=== PATIENT | male | born 1955 | race Two or more races ===

== ENCOUNTER → 2021-02-21 | Outpatient (CLI) | payer MEDICAID ==
[~2021-02-21] MED LIST: METF500T17 PO
[2021-02-21 09:34] LABS: BASOPHILS % (AUTO) 1 % (0-1); EOSINOPHILS % (AUTO) 7 % (1-7); LYMPHOCYTES % (AUTO) 22 % (22-44); MEAN CORPUSCULAR HEMOGLOBIN 27.5 pg (27.5-34.5); MEAN CORPUSCULAR HGB CONC 32.9 g/dL (33.2-36.2); MEAN PLATELET VOLUME 7.1 fL (7.4-10.4); MONOCYTES % (AUTO) 9 % (2-9); NEUTROPHILS % (AUTO) 60 % (42-75); PLATELET COUNT 285 x10^3/uL (130-400); RED BLOOD COUNT 5.01 x10^6/uL (4.38-5.82); RED CELL DISTRIBUTION WIDTH 14.5 % (9.4-14.8)
[2021-02-21 09:35] LABS: MD NO
[2021-02-21 09:45] LABS: INTERNATIONAL NORMALIZED RATIO 1.03 (0.93-1.1)
[2021-02-21 09:46] LABS: ALANINE AMINOTRANSFERASE 53 U/L (12-78); ANION GAP 4 mmol/L (5-15); CALCIUM 9.4 mg/dL (8.5-10.1); CHLORIDE 105 mmol/L (98-107); CREATININE 0.82 mg/dL (0.7-1.3)
[2021-02-21 09:48] LABS: ALKALINE PHOSPHATASE 81 U/L (45-117); BILIRUBIN,TOTAL 0.5 mg/dL (0.2-1.0); TOTAL PROTEIN 8.3 g/dL (6.4-8.2)
== END | disposition home or self-care (01) ==
LOC: STAR 08:11
PROVIDERS: ATTEND Orthopaedic Surgery
DX: Z01.818 Encounter for other preprocedural examination (principal); Z20.822 Contact with and (suspected) exposure to COVID-19
CPT/HCPCS: 36415; 80053; 83036; 85025; 85610; 85730; 87081; 93005; U0003; U0005

== ENCOUNTER 2021-02-24 07:08 | Day surgery (SDC) | payer MEDICAID ==
[~2021-02-24] VITALS: Ht 175.3 cm; Wt 109.1 kg
[~2021-02-24 07:08] MED LIST changes: +ACETAMINOPHEN 650 MG/20.3 ML UDC PO PRN; +BISACODYL 10 MG SUPP PR PRN; +CEFAZOLIN PMX 2GM/50ML 50 ML IVPB SCH; +DIPHENHYDRAMINE 25 MG CAPSULE PO PRN; +EPINEPHRINE 1 MG/ML, 1ML ONE; +HYDROcodone/APAP 5/325 TABLET PO PRN; +KETOROLAC 60 MG/2 ML ONE; +MAGNESIUM HYDROXIDE 8%, 30ML UDC PO PRN; +NS + 20MEQ KCL 1,000 ML IV SCH; +ONDANSETRON 2MG/ML, 2ML IV PRN; +ONDANSETRON 4 MG TABLET PO PRN; +OXYcodone IR 5MG TABLET PO PRN; +ROPIvacaine/PF 0.5%, 20 ML ONE; +ROPIvacaine/PF 0.5%, 30 ML ONE; +SENNA/DOCUSATE TABLET PO PRN; +SODIUM CHLORIDE 0.9% 50 ML ONE; +TRANEXAMIC ACID 100 MG/ML, 10ML ONE; +VANCOMYCIN 1,000 MG ONE
[2021-02-24 07:40] VITALS: BP 122/77
[2021-02-24] MEDS ORDERED: MIDAZOLAM 1 MG/ML, 2ML ONE (07:40)
[2021-02-24] MEDS ORDERED: FENTANYL PF 250 MCG/5ML ONE (07:40)
[2021-02-24] MEDS ORDERED: ACETAMINOPHEN 500 MG TABLET PO ONE (08:00)
[2021-02-24] MEDS ORDERED: LACTATED RINGERS 1,000 ML IV SCH (08:00)
[2021-02-24] MEDS ORDERED: GABAPENTIN 300 MG CAPSULE PO ONE (08:00)
[2021-02-24] MEDS ORDERED: CHLORHEXIDINE 15 ML UDC PO ONE (08:00)
[2021-02-24] MEDS ORDERED: metFORMIN 500 MG TABLET PO SCH (09:00)
[2021-02-24] MEDS ORDERED: DOCUSATE 100 MG CAPSULE PO SCH (09:00)
[2021-02-24] MEDS ORDERED: OXYcodone 5 MG/5 ML ORAL.SOL UDC PO PRN (09:30)
[2021-02-24] MEDS ORDERED: FENTANYL PF 100 MCG/2ML IV PRN (09:30)
[2021-02-24] MEDS ORDERED: LABETALOL 5MG/ML, 20ML IV PRN (09:30)
[2021-02-24] MEDS ORDERED: PROMETHAZINE 25 MG/ML, 1ML IVPush PRN (09:30)
[2021-02-24] MEDS ORDERED: LORazepam 2 MG/ML, 1ML IVPush PRN (09:30)
[2021-02-24] MEDS ORDERED: HYDROmorphone 1 MG/ML, 1ML INJ IVPush PRN (09:30)
[2021-02-24] MEDS ORDERED: ALBUTEROL SULFATE 2.5 MG/3 ML NPPB PRN (09:30)
[2021-02-24] MEDS ORDERED: METHOCARBAMOL 1,000 MG in DEXTROSE 5% 100 ML IV PRN (09:30)
[2021-02-24] MEDS ORDERED: MEPERIDINE/PF 25MG/0.5ML IVPush PRN (09:30)
[2021-02-24] MEDS ORDERED: ACETAMINOPHEN 325 MG TABLET PO PRN (09:30)
[2021-02-24] MEDS ORDERED: NEOSTIGMINE 1 MG/ML, 10ML ONE (09:35)
[2021-02-24] MEDS ORDERED: ROCURONIUM 10MG/ML,5ML ONE ×2 (09:35→11:25)
[2021-02-24] MEDS ORDERED: CEFAZOLIN 1,000 MG ONE (09:35)
[2021-02-24] MEDS ORDERED: GLYCOPYRROLATE 0.2MG/1ML, 5ML ONE (09:35)
[2021-02-24] MEDS ORDERED: PROPOFOL 10 MG/ML, 20ML ONE (09:35)
[2021-02-24] MEDS ORDERED: LIDOCAINE-MPF 2% ,5ML ONE (09:35)
[2021-02-24] MEDS ORDERED: ONDANSETRON 2MG/ML, 2ML ONE (09:35)
[2021-02-24] MEDS ORDERED: HYDROmorphone 1 MG/ML, 1ML INJ ONE (09:45)
[2021-02-24] MEDS ORDERED: ASPIRIN 81 MG TABLET EC PO SCH (18:00)
[2021-02-24] MEDS ORDERED: ZOLPIDEM 5MG TABLET PO PRN (21:00)
[2021-02-25] MEDS ORDERED: DEXAMETHASONE 4 MG/ML, 1ML IVPush SCH (06:00)
== END 2021-02-24 13:55 | disposition home or self-care (01) ==
LOC: OUT 07:08
PROVIDERS: ATTEND Orthopaedic Surgery
DX: M16.12 Unilateral primary osteoarthritis, left hip (principal); M25.752 Osteophyte, left hip; E11.9 Type 2 diabetes mellitus without complications; Z79.84 Long term (current) use of oral hypoglycemic drugs; Z79.899 Other long term (current) drug therapy; Z87.891 Personal history of nicotine dependence; Z96.641 Presence of right artificial hip joint; Z82.61 Family history of arthritis
CPT/HCPCS: 27130; 72170; 73501; 82962; 97116; 97162; 97166; 97530; C1713; C1776; J0171; J0690; J1170; J1885; J2250; J2405; J2704; J2710; J2795; J3010; J3370; J7120; 76000